=== PATIENT | male | born 1990 | race Caucasian/White ===

== ENCOUNTER 2017-09-23 15:48 | Emergency (ER) | payer OTHER ==
[2017-09-23 16:05] VITALS: BP 138/76
== END 2017-09-23 18:13 | disposition home or self-care (01) ==
LOC: ED 15:48
DX: B34.9 Viral infection, unspecified (principal)
CPT/HCPCS: J1885; Q0162

== ENCOUNTER 2018-10-11 02:30 | Emergency (ER) | payer BC ==
[~2018-10-11] VITALS: Ht 165.1 cm; Wt 103.4 kg
[2018-10-11 03:08] VITALS: BP 134/773; Ht 165.1 cm; Wt 103.4 kg
== END 2018-10-11 03:38 | disposition home or self-care (01) ==
LOC: ED 02:30
DX: J11.1 Influenza due to unidentified influenza virus with other respiratory manifestations (principal)

== ENCOUNTER 2019-05-14 10:31 | Emergency (ER) | payer BC ==
[~2019-05-14] VITALS: Ht 162.6 cm; Wt 96.2 kg
[2019-05-14 10:36] VITALS: Ht 162.6 cm; Wt 96.2 kg
[2019-05-14 11:56] LABS: BASOPHIL % 0.4 % (0-2); PLATELET COUNT 275 x10^3mcL (130-400); RED CELL DISTRIBUTION WIDTH 13.5 % (11.5-14.5)
[2019-05-14 12:23] LABS: CARBON DIOXIDE 23.8 mmol/L (21-32); CHLORIDE SERUM 102 mmol/L (98-107); CREATININE SERUM 0.8 mg/dL (0.7-1.3); GFR1 > 60 mL/min; GLUCOSE SERUM 96 mg/dL (74-106); POTASSIUM SERUM 3.8 mmol/L (3.5-5.1); SODIUM SERUM 139 mmol/L (136-145)
[2019-05-14 12:27] LABS: ALKALINE PHOSPHATASE 66 U/L (46-116); ALT/SGPT 74 U/L (16-63); AST/SGOT 22 U/L (15-37); BILIRUBIN TOTAL 1.3 mg/dL (0.20-1.00); LIPASE 107 IU/L (73-393); TOTAL PROTEIN, SERUM 7.7 g/dL (6.4-8.2)
[2019-05-14 16:16] VITALS: BP 133/69
== END 2019-05-14 16:16 | disposition home or self-care (01) ==
LOC: ED 10:31
PROVIDERS: Emergency Medicine
DX: K57.90 Diverticulosis of intestine, part unspecified, without perforation or abscess without bleeding (principal)
CPT/HCPCS: 36415; J1885; Q9967

== ENCOUNTER 2020-03-18 10:59 | Emergency (ER) | payer BC ==
[~2020-03-18] VITALS: Ht 165.1 cm; Wt 96.6 kg
[2020-03-18 11:04] VITALS: Ht 165.1 cm; Wt 96.6 kg
[2020-03-18 12:29] VITALS: BP 118/72
== END 2020-03-18 12:29 | disposition home or self-care (01) ==
LOC: ED 10:59
DX: T15.02XA Foreign body in cornea, left eye, initial encounter (principal); W45.8XXA Other foreign body or object entering through skin, initial encounter; Y93.89 Activity, other specified; Y92.89 Other specified places as the place of occurrence of the external cause; Y99.8 Other external cause status
CPT/HCPCS: 90715